=== PATIENT | female | born 1980 | race Caucasian/White ===

== ENCOUNTER 2023-05-19 14:32 | Observation (INO) | payer BC ==
[2023-05-19 16:21] LABS: HEMATOCRIT 31.7 % (34.3-46.0); HEMOGLOBIN 10.3 g/dL (11.2-15.5); MEAN CORPUSCULAR HEMOGLOBIN 25.3 pg (31.6-35.5); MEAN CORPUSCULAR HGB CONC 32.5 g/dL (31.6-35.5); MEAN CORPUSCULAR VOLUME 77.9 fL (81.4-99.0); RED BLOOD CELL COUNT 4.07 M/uL (3.77-5.24); WHITE BLOOD CELL COUNT,WBC 3.3 K/uL (3.2-11.0)
[2023-05-19 16:44] LABS: A/G RATIO 1.1 (1.2-2.2); ALANINE AMINOTRANSFERASE,ALT 20 U/L (12-78); ALBUMIN 3.6 g/dL (3.4-5.0); ALKALINE PHOSPHATASE 46 U/L (46-116); ANION GAP 9.4 mmol/L (5.0-14.0); ASPARTATE AMNIOTRANSFERASE,AST 15 U/L (15-37); BILIRUBIN TOTAL 0.3 mg/dL (0.2-1.0); BLOOD UREA NITROGEN,BUN 7 mg/dL (7-18); C-REACTIVE PROTEIN 0.07 mg/dL (0.0-0.3); CALCIUM 8.8 mg/dL (8.5-10.1); CARBON DIOXIDE,CO2 26 mmol/L (21-32); CHLORIDE,CL 107 mmol/L (100-108); CREATININE 0.6 mg/dL (0.6-1.0); EST CRCL DRUG DOSING (CG) 93.11 mL/min; ESTIMATED GFR 116 mL/min (>60); GLUCOSE RANDOM 99 mg/dL (74-106); POTASSIUM,K 3.6 mmol/L (3.6-5.2); SODIUM,NA 142 mmol/L (140-148); TROPONIN I HIGH SENSITIVITY 4.2 pg/mL (<=60.3)
[2023-05-19 16:54] LABS: TSH ULTRASENSITIVE 1.735 uIU/mL (0.358-3.740)
[2023-05-19 19:18] LABS: APPEARANCE,URINE CLEAR (CLEAR); BILIRUBIN,URINE NEGATIVE (NEGATIVE); COLOR,URINE YELLOW (YELLOW); GLUCOSE,URINE NEGATIVE (NEGATIVE); KETONES,URINE 40 mg/dL (NEGATIVE); LEUKOCYTE ESTERASE,URINE NEGATIVE (NEGATIVE); NITRITE,URINE NEGATIVE (NEGATIVE); OCCULT BLOOD,URINE MODERATE (NEGATIVE); PH,URINE 6.5 (5.0-8.0); PROTEIN,URINE NEGATIVE (NEGATIVE); UROBILINOGEN,URINE 0.2 EU/dL (0.2-1.0)
[2023-05-19 19:23] LABS: AMORPHOUS SEDIMENT,URINE NOT SEEN; BACTERIA,URINE FEW; EPITHELIAL CELLS,URINE FEW; MUCUS,URINE RARE; WBC,URINE 0-5 (0-5)
[2023-05-19 19:24] LABS: AMPHETAMINES SCREEN, URINE NEGATIVE (NEGATIVE); BARBITURATE SCREEN,URINE NEGATIVE (NEGATIVE); BENZODIAZEPINES SCREEN,URINE NEGATIVE (NEGATIVE); METHADONE SCREEN, URINE NEGATIVE (NEGATIVE); METHAMPHETAMINES SCREEN, URINE NEGATIVE (NEGATIVE); OXYCODONE SCREEN,URINE NEGATIVE (NEGATIVE); PROPOXYPHENE SCREEN,URINE NEGATIVE (NEGATIVE); THC SCREEN,URINE 50 NG/ML NEGATIVE (NEGATIVE)
[2023-05-19] MEDS ORDERED: oxyCODONE 5 MG Tab PO PRN (20:03)
[2023-05-19] MEDS ORDERED: Acetaminophen 325 MG Tab PO PRN (20:03)
[2023-05-19] MEDS ORDERED: Sodium Chloride 0.9% 10 ML Syringe FLUSH PRN (20:03)
[2023-05-19] MEDS: Sodium Chloride 0.9% 1,000 ML IV SCH ×2 (20:22→22:39)
[2023-05-20 04:25] LABS: BASOPHILS ABSOLUTE AUTO 0.04 K/uL (0.00-0.10); BASOPHILS PERCENT AUTO 1.1 % (0.1-1.3); EOSINOPHILS ABSOLUTE AUTO 0.24 K/uL (0.00-0.40); EOSINOPHILS PERCENT AUTO 6.9 % (0.0-5.4); HEMOGLOBIN 8.9 g/dL (11.2-15.5); LYMPHOCYTES ABSOLUTE AUTO 1.49 K/uL (0.8-3.3); LYMPHOCYTES PERCENT AUTO 42.7 % (11.4-47.7); MEAN CORPUSCULAR HGB CONC 31.8 g/dL (31.6-35.5); MEAN CORPUSCULAR VOLUME 78.7 fL (81.4-99.0); MONOCYTES ABSOLUTE AUTO 0.29 K/uL (0.20-0.90); MONOCYTES PERCENT AUTO 8.3 % (3.3-12.6); NEUTROPHILS ABSOLUTE AUTO 1.43 K/uL (1.0-7.6); PLATELET COUNT,PLT 188 K/uL (130-375); RED BLOOD CELL COUNT 3.56 M/uL (3.77-5.24); WHITE BLOOD CELL COUNT,WBC 3.5 K/uL (3.2-11.0)
[2023-05-20 04:37] LABS: CALCIUM 7.4 mg/dL (8.5-10.1); CREATININE 0.5 mg/dL (0.6-1.0); EST CRCL DRUG DOSING (CG) 111.73 mL/min; POTASSIUM,K 3.6 mmol/L (3.6-5.2)
[2023-05-20 04:44] LABS: ANION GAP 12.6 mmol/L (5.0-14.0)
== END 2023-05-20 12:40 | disposition home or self-care (01) ==
LOC: JP.ED 14:32 → JP.ICU 19:18
PROVIDERS: ADMIT Internal Medicine; ATTEND Hospitalist
DX: R55 Syncope and collapse (principal); R94.31 Abnormal electrocardiogram [ECG] [EKG]; E86.0 Dehydration; E83.30 Disorder of phosphorus metabolism, unspecified; Z20.822 Contact with and (suspected) exposure to COVID-19
CPT/HCPCS: 36415; 71046; 80048; 80053; 80305; 81001; 81025; 82150; 82947; 83735; 84100; 84443; 84484; 85025; 85027; 86140; 87635; 93005; 96360; 99221; 99238; 99285; C8929; G0378; J7030; U0002